=== PATIENT | male | born 1995 | race Hispanic/Latino ===

== ENCOUNTER 2017-02-05 00:46 | Emergency (ER) | payer OTHER, SELFPAY ==
[2017-02-05] MEDS ORDERED: Ketorolac Tromethamine 30 MG/ML VIAL ONE (01:10)
[2017-02-05] MEDS ORDERED: Diazepam 5 MG TAB ONE (01:10)
== END 2017-02-05 01:25 | disposition home or self-care (01) ==
LOC: BURERS 00:46
DX: R07.82 Intercostal pain (principal)
CPT/HCPCS: 96374; J1885

== ENCOUNTER 2023-07-08 16:21 | Emergency (ER) | payer SELFPAY | END 2023-07-08 17:20 | disposition home or self-care (01) | LOC: BURERS 16:21 | DX: J20.9 Acute bronchitis, unspecified (principal); F17.200 Nicotine dependence, unspecified, uncomplicated | CPT/HCPCS: 71046 ==